=== PATIENT | female | born 1945 | race Caucasian/White ===

== ENCOUNTER 2025-02-14 13:58 | Emergency (ER) | payer OTHER, SELFPAY ==
[2025-02-14 14:06] VITALS: BP 130/85
--- NOTE | 2025-02-14 14:26 | ED.GENMED ---
History of Present Illness
General
Chief Complaint: Bowel Problem
Source: patient
Exam Limitations: none
Time Seen by Provider: 02/14/25 14:20
History of Present Illness
History of Present Illness:
See MDM
Past History
Past History
ED Past Medical History: None
ED Past Surgical History: None
Social History
Tobacco: Non-smoker
Alcohol: None
Phy Exam
Physical Exam
Physical Exam:
See MDM
Course
Orders/Labs/Results
Orders:
Orders
02/14/25 14:25
HYDROmorphone [Dilaudid] 1 mg IM NOW STA
02/14/25 14:46
HYDROmorphone [Dilaudid] 1 mg IV NOW STA
02/14/25 15:18
HYDROmorphone [Dilaudid] 1 mg IV NOW STA
02/14/25 15:20
Consult Colorectal Surgery [ColoRectal Surgery Consult] Urgent
Consulting Provider: Gary Gonzales
Was physician already notified: Yes
02/14/25 16:17
Ondansetron Injectable [Zofran] 4 mg IV NOW STA
02/14/25 16:42
Ondansetron Injectable [Zofran] 4 mg IV NOW STA
Vital Signs
Initial and Last Documented VS:
Initial Vital Signs
Temp Pulse Resp BP Pulse Ox
97.9 F 98 16 130/85 98
02/14/25 14:06 02/14/25 14:06 02/14/25 14:06 02/14/25 14:06 02/14/25 14:06
Last Documented Vital Signs
Temp Pulse Resp BP Pulse Ox
97.9 F 98 16 130/85 98
02/14/25 14:06 02/14/25 14:06 02/14/25 14:06 02/14/25 14:06 08/04/25 14:28
MDM/Problems Addressed
Differential Diagnosis Includes:
Note:
CHIEF COMPLAINT(S)
Rectal prolapse.
HISTORY OF PRESENT ILLNESS
The patient is an 79-year-old female who presents with a rectal prolapse. She reports that this has never happened before. Approximately several years ago, she underwent banding surgery performed by a field operations technician for her hemorrhoids. She states
she had a sensation to defecate earlier today and started straining. She then realized that she prolapsed rectum. She states this is never happened before. Family was nervous to try and reduce it so they came to the emergency department. Exam is
consistent with a rectal prolapse. Sugar was placed on the area and patient given IM Dilaudid.
PHYSICAL EXAM
General: Uncomfortable
Skin: Warm, dry.
Head: Normocephalic, atraumatic.
Neck: Supple, trachea midline.
Eye, Ears, Nose, and Throat: Oral mucosa moist.
Cardiovascular: Normal peripheral perfusion, no edema.
Respiratory: Respirations are non-labored.
Gastrointestinal: Abdomen nondistended. Rectal prolapse noted
Musculoskeletal: No deformity
Neurological: no focal neurological deficit observed.
Psychiatric: Cooperative, appropriate mood & affect.
PLAN
1. Administer an intramuscular dose of Dilaudid for pain management.
2. Apply sugar to the prolapsed rectum to aid in reducing inflammation and facilitate manual reduction.
3. Recommend the use of stool softeners to prevent recurrence of rectal prolapse.
4. Manually reduce the rectal prolapse following administration of analgesia and reduction of edema.
DIFFERENTIAL DIAGNOSIS
The Differential Diagnosis includes, in no particular order and is not limited to:
1. Rectal prolapse.
2. Hemorrhoids.
3. Rectal carcinoma.
4. Anal fissure.
5. Colorectal cancer.
6. Rectocele.
7. Rectal abscess.
8. Inflammatory bowel disease.
9. Diverticulitis.
10. Pelvic floor dysfunction.
SUMMARY OF ENCOUNTER
The patient, an 79-year-old female, presented to the emergency department with a rectal prolapse. Initial attempts to manually reduce the prolapse were partially successful but ultimately required the expertise of a colorectal surgeon, who
successfully reduced the prolapse at the bedside. The patient required multiple doses of hydromorphone (Dilaudid) for pain management, which resulted in some nausea. Following prolonged observation, the patient reported feeling significantly better
and expressed comfort with being discharged.
DISPOSITION
Discharge.
ASSESSMENT
Rectal prolapse requiring surgical consut and pain management.
EMERGENCY TREATMENTS ADMINISTERED
Hydromorphone (Dilaudid) was administered for pain management.
MANAGEMENT OF THE PATIENTS CARE WAS DISCUSSED WITH
Discussed with a colorectal surgeon, who performed the successful reduction of the rectal prolapse at the bedside.
PLAN
The patient will follow up with her primary care physician and a colorectal surgeon as part of her continued care.
PATIENT EDUCATION AND COUNSELING
The patient was advised on the importance of follow-up with her primary care physician and colorectal surgeon for further management and to ensure no complications arise.
FOLLOW-UP INSTRUCTIONS
Patient will follow up with her primary care doctor and a colorectal surgeon for continued monitoring and management.
MEDICATION RECONCILIATION
Hydromorphone (Dilaudid) administered for pain management.
MEDICAL DECISION MAKING
- Number and Complexity of Problems Addressed: Chronic conditions affecting care include rectal prolapse and history of prior banding surgery. Differential Diagnosis includes: rectal prolapse, hemorrhoids, rectal carcinoma, anal fissure, colorectal
cancer, rectocele, rectal abscess, inflammatory bowel disease, diverticulitis, pelvic floor dysfunction.
- Data:
Category 3:
Discussed management with a colorectal surgeon who successfully reduced the rectal prolapse.
- Risk:
Hydromorphone was administered for pain management, indicating a moderate risk of complications.
*Pulse Oximetry
SaO2: 98
Oxygen Mode of Delivery: Room air
Patient hypoxic: no
*Critical Care Note
Total Time (30-74mins, 75-104mins- exclusive of procedures): Not Applicable
ED Attending Note
-
Portions of this chart may have been created with voice recognition software.� Occasional wrong word or��sound alike� substitutions may have occurred due to the inherent limitations of voice recognition software.
Discharge Plan
Departure
Patient Disposition: Home (Routine Discharge)
Date of Disposition: 02/14/25
Time of Disposition: 18:43
Patient with high blood pressure during this ER visit?: No
Discharge Problem:
Rectal prolapse
Instructions: Rectal prolapse in adults
Prescriptions:
New
ondansetron 4 mg Tablet,Disintegrating
4 mg PO BIDPRN PRN (Reason: nausea/vomiting) Qty: 10 0RF
Referrals:
UNKNOWN - PT DOES,NOT KNOW [Family Provider]
Activity Restrictions/Additional Instructions:
Please return for any worsening symptoms.
You may return at any time if you have further concerns.
Please follow up with your doctor at the first available appointment, preferably this week. Please follow-up with the colorectal surgeon. Please take a stool softener daily and please take a laxative if you develop constipation.
Thank you for choosing [facility].
Interventions
Interventions:
*Risk Screen - Suicide Last Done: 02/14/25 14:07
*Neglect/Abuse Screening Last Done: 02/14/25 14:07
SD-Dmelpv-Phpxnyyirz Assessment Last Done: 02/14/25 14:41
Discharge Date and Time
Print Language: BELGIAN
[2025-02-14] MEDS: DILAUDID 1 MG IM (14:39)
[2025-02-14] MEDS: DILAUDID 1 MG IV ×2 (14:59→15:59)
[2025-02-14] MEDS: ZOFRAN 4 MG IV ×2 (16:30→17:46)
== END 2025-02-14 19:19 | disposition home or self-care (01) ==
LOC: EMR 13:58
PROVIDERS: CONSULT PHYSICIAN Surgery; EMERGENCY PHYSICIAN Student in an Organized Health Care Education/Training Program
DX: K62.3 Rectal prolapse (principal)
CPT/HCPCS: 96374; 96375; 96376; 96372; 99284